=== PATIENT | male | born 1950 | race American Indian/Alaskan Native ===

== ENCOUNTER 2018-06-07 18:21 | Emergency (ER) | payer MEDICARE ==
--- NOTE | 2018-06-07 18:46 | Emergency Department Report ---
Blank Doc - Documentation Documentation: C/O dysuria s/p cystosopy that was done yesterday and had stent removed today. Was seen by [facility]. Pain 01/18. This initial assessment diagnostic orders/clinical plan/treatment (s) is/Are subject change based on patient's health status, clinical progression and re- assessment by fellow clinical providers in the ED. Further treatment and work-up at subsequent clinical providers discretion. Patient/guardians urged not to elope from s their condition may be serious if not clinically assessed and managed. Inital order include:
[2018-06-07 20:46] LABS: Bacteria,Urine 1+ /HPF (Negative); Bilirubin,Urine NEG (Negative); Blood,Urine LG (Negative); Color,Urine Yellow (Yellow); Urobilinogen,Urine < 2.0 mg/dL (<2.0)
--- NOTE | 2018-06-07 20:48 | Emergency Department Report ---
ED Male HPI - General Chief complaint: Urogenital-Male Stated complaint: BLADDER PAIN Time Seen by Provider: 06/07/18 18:42 Source: patient Mode of arrival: Ambulatory Limitations: No Limitations - History of Present Illness Initial comments: Patient is a 68-year-old -[place] male with history of BPH status post cystoscopy on yesterday States earlier today by Dr. Campbell [facility] through hours later patient began have dysuria and has been unable to urinate now with bladder spasms rated at 10/10 patient denies fever chills no nausea vomiting no abdominal no back pain vital signs noted on presentation at 125 bpm, 202/98 pt advises that he has not had medications today pt denies cp no sob MD Complaint: dysuria Onset/Timin -: hour(s) Radiation: none Severity: moderate Severity scale (0 -10): 8 Quality: other (spasm aching ) Consistency: constant Improves with: none Worsens with: none dysuria, other (unable to void ) - Related Data Sexually active: No Previous Rx's Medication Instructions Recorded Last Taken Type Phenazopyridine [Pyridium] 100 mg PO TID #6 tab 06/07/18 Unknown Rx Tamsulosin HCl [Flomax] 0.4 mg PO DAILY #15 cap.er.24h 06/07/18 Unknown Rx levoFLOXacin [Levaquin TAB] 500 mg PO QDAY 10 Days #10 tablet 06/07/18 Unknown Rx traMADol [Ultram] 50 mg PO Q6HR PRN #12 tablet 06/07/18 Unknown Rx Allergies Allergy/AdvReac Type Severity Reaction Status Date / Time quinine Allergy Unknown Verified 06/07/18 18:49 ED Review of Systems ROS: Stated complaint: BLADDER PAIN Other details as noted in HPI Constitutional: denies: chills, fever Eyes: denies: eye pain, eye discharge, vision change ENT: denies: ear pain, throat pain Respiratory: denies: cough, shortness of breath, wheezing Cardiovascular: denies: chest pain, palpitations Endocrine: no symptoms reported Gastrointestinal: denies: abdominal pain, nausea, diarrhea Genitourinary: urgency, dysuria, frequency. denies: hematuria, discharge, te sticular pain, testicular mass Musculoskeletal: denies: back pain, joint swelling, arthralgia Skin: denies: rash, lesions Neurological: denies: headache, weakness, paresthesias Psychiatric: denies: anxiety, depression Hematological/Lymphatic: denies: easy bleeding, easy bruising ED Past Medical Hx - Past Medical History Hx Kidney Stones: Yes Additional medical history: kidney stent - Surgical History Additional Surgical History: abd tumor - Social History Smoking Status: Never Smoker Substance Use Type: None - Medications Home Medications: Home Medications Medication Instructions Recorded Confirmed Last Taken Type Phenazopyridine [Pyridium] 100 mg PO TID #6 tab 06/07/18 Unknown Rx Tamsulosin HCl [Flomax] 0.4 mg PO DAILY #15 cap.er.24h 06/07/18 Unknown Rx levoFLOXacin [Levaquin TAB] 500 mg PO QDAY 10 Days #10 tablet 06/07/18 Unknown Rx traMADol [Ultram] 50 mg PO Q6HR PRN #12 tablet 06/07/18 Unknown Rx ED Physical Exam - General Limitations: No Limitations General appearance: alert, in no apparent distress - Head Head exam: Present: atraumatic, normocephalic - Eye Eye exam: Present: normal appearance - ENT ENT exam: Present: mucous membranes moist - Neck Neck exam: Present: normal inspection - Respiratory Respiratory exam: Present: normal lung sounds bilaterally. Absent: respiratory distress - Cardiovascular Cardiovascular Exam: Present: regular rate, normal rhythm, normal heart sounds - GI/Abdominal GI/Abdominal exam: Present: soft, normal bowel sounds. Absent: tenderness, rebound, bruit, hernia - Rectal Rectal exam: Present: deferred - Back Exam Back exam: Present: normal inspection, full ROM. Absent: tenderness, CVA tenderness (R), CVA tenderness (L), muscle spasm, rash noted - Neurological Exam Neurological exam: Present: alert, oriented X3, CN II-XII intact, normal gait, reflexes normal - Psychiatric Psychiatric exam: Present: normal affect, normal mood - Skin Skin exam: Present: warm, dry, intact, normal color. Absent: rash ED Course Vital Signs 06/07/18 18:45 Temperature 98.3 F Pulse Rate 125 H Respiratory 20 Rate Blood Pressure 202/98 O2 Sat by Pulse 99 Oximetry ED Medical Decision Making - Medical Decision Making improved, vital signs now hr: 87 bmp, bP:147-82, uA: pos wbc , leuk, rbc pt is now voiding without difficulty , plan, levaquin, pyridium, continue flomax, ultram, follow up with urology tomorrow, pt verbalized agreement and understanding of same. Critical care attestation.: If time is entered above; I have spent that time in minutes in the direct care of this critically ill patient, excluding procedure time. ED Disposition Clinical Impression: UTI (urinary tract infection) Qualifiers: Urinary tract infection type: acute cystitis Hematuria presence: without hematuria Qualified Code(s): N30.00 - Acute cystitis without hematuria Disposition: TO HOME OR SELFCARE Is pt being admited?: No Does the pt Need Aspirin: No Condition: Stable Instructions: Urinary Tract Infection in Men (ED) Additional Instructions: follow up with urology Dr. Campbell tomorrow Prescriptions: levoFLOXacin [Levaquin TAB] 500 mg PO QDAY 10 Days #10 tablet Phenazopyridine [Pyridium] 100 mg PO TID #6 tab Tamsulosin HCl [Flomax] 0.4 mg PO DAILY #15 cap.er.24h traMADol [Ultram] 50 mg PO Q6HR PRN #12 tablet PRN Reason: Pain Referrals: DR. SHEKHAR [Other] - 3-5 Days Forms: Work/School Release Form(ED)
[2018-06-07] MEDS ORDERED: XYLOCAINE 1% MPF 5 mL INFILTRATI ONE (20:51)
[2018-06-07] MEDS ORDERED: LEVAQUIN PO ONE (20:51)
[2018-06-07] MEDS ORDERED: ULTRAM PO ONE (20:51)
[2018-06-07] MEDS ORDERED: ROCEPHIN IM ONE (20:51)
[2018-06-07] MEDS ORDERED: PYRIDIUM PO ONE (21:00)
[2018-06-07 22:35] VITALS: BP 147/80
== END 2018-06-07 23:00 | disposition home or self-care (01) ==
LOC: ED 18:21
DX: N39.0 Urinary tract infection, site not specified (principal); Z88.8 Allergy status to other drugs, medicaments and biological substances; Z87.442 Personal history of urinary calculi
CPT/HCPCS: 81001; 87086; 96372; 99283; J0696